=== PATIENT | female | born 1990 | race Two or more races ===

== ENCOUNTER 2018-10-16 14:31 | Inpatient (IN) | payer OTHER ==
--- NOTE | 2018-10-16 16:35 | PDGENHP ---
History and Physical History and Physical: Care: [facility] HPI: Bee Doran is a 28yo with IUP @ 40-3 weeks that presents to L&D with complaints of leaking fluid since 07. States contractions started last night at approx 2200, but worsened after SROM. she denies any VB. She reports +FM. EDC: 10/13/2018 which is based on LMP: 01/06/18 which is known and consistent with Ultrasound at 9 weeks. Her is complicated by:ALBERTO @ 23wks, ?zika exposure, fibroid, abnormal AFP/Quaf- normal NIPT Review of Systems: Constitutional: Denies any fever, chills, or fatigue HEENT: denies any visual changes, difficulty swallowing, hearing loss Cardiovascular: Denies any chest pain, palpitations, leg swelling Respiratory: denies any cough, wheezing, or shortness of breathe GI: Denies any nausea, vomiting, diarrhea, constipation : denies any dysuria, urgency, frequency, vaginal bleeding Musculoskeletal: denies any muscle or bone pain Skin: denies any rashes Neuro: denies any headache, seizures, lightheadedness, dizziness, or loss of consciousness Psychiatric: denies any depression, anxiety, or SI/HI thoughts HISTORY: Previous OB history: G1 Past medical history: uterine fibroid Past surgical history:left finger surgery Social: Denies any alcohol, tobacco, or drug use. Family history: Not relevant Medications: PNV Allergies (list reaction): NKDA LABS: Rh:O+ ABS: Neg Rubella: Immune HbsAg: NR HIV: NR VDRL: NR 1hr: 143-- 3hr NL GC: Neg Chlamydia: Neg Pap: ? GBS: neg BMI: (prepreg) 23 PHYSICAL EXAM: Constitutional: WN, A&Ox3 HEENT: normocephalic atraumatic, supple Skin: Warm, dry, intact Heart: RRR, no murmur Chest: CTA-B Abdomen: Soft, nontender, gravid SVE: deferred Extremities: no edema, negative homans sign Neuro: grossly normal Psych: normal affect assessment: FHT baseline 145 +accels, no decels, moderate variability Contractions: toco q 3-4 Assessment: * 28yo with IUP@ 40-3wks * ACtive labor * GBS Negative * cat 1 FHR * SROM- clear Plan: * admit to L&D * expectant management * pain management PRN * IA per protocol * consider augmentation PRN * reassess 2-4hr/PRN Today's visit was approximately 30 min, of which >50% of visit 20 min, was spent face to face with pt on direct counseling/coordination of care.
[2018-10-16] MEDS ORDERED: AMMONIA AROMATIC 1 EACH AMP IH PRN (16:36)
[2018-10-16] MEDS ORDERED: MISOPROSTOL 200 MCG TAB PO PRN (16:36)
[2018-10-16] MEDS ORDERED: LR 1,000 ML IV PRN (16:36)
[2018-10-16] MEDS ORDERED: EPSOM SALT 454 GM TP PRN (16:36)
[2018-10-16] MEDS ORDERED: OLIVE OIL 118 ML BTL MISC PRN (16:36)
[2018-10-16] MEDS ORDERED: TERBUTALINE SULFATE 1 MG/ML VIAL IV PRN (16:36)
[2018-10-16] MEDS ORDERED: LIDOCAINE 1% 300 MG/30 ML SDV SC PRN (16:36)
[2018-10-16] MEDS ORDERED: IBUPROFEN 600 MG TAB PO PRN (16:36)
[2018-10-16] MEDS ORDERED: OXYTOCIN/RINGERS LACTATE 1,000 ML IV PRN (16:36)
[2018-10-16 17:23] LABS: PLATELET COUNT 239 10^3/uL (150-400)
[2018-10-16] MEDS ORDERED: PHENYLEPHRINE HCL 100 MCG/ML SYR ONE (17:31)
[2018-10-16] MEDS ORDERED: fentaNYL 2MCG/ML/BUP 0.1% RTU 100 ML BAG EP ONE (17:31)
[2018-10-16] MEDS ORDERED: LIDOCAINE 1% 300 MG/30 ML SDV ONE (17:41)
[2018-10-16] MEDS ORDERED: OLIVE OIL 118 ML BTL MISC ONE (17:41)
[2018-10-16] MEDS ORDERED: AMMONIA AROMATIC 1 EACH AMP IH ONE (17:41)
[2018-10-16] MEDS ORDERED: TERBUTALINE SULFATE 1 MG/ML VIAL ONE (17:42)
[2018-10-16] MEDS ORDERED: MISOPROSTOL 200 MCG TAB ONE (17:42)
[2018-10-16] MEDS ORDERED: OXYTOCIN 10 UNIT/ML VIAL ONE (17:42)
[2018-10-16] MEDS ORDERED: ONDANSETRON 4 MG/2 ML VIAL IVP PRN (17:54)
[2018-10-16] MEDS ORDERED: METOCLOPRAMIDE 10 MG/2 ML VIAL IVP PRN (17:54)
[2018-10-16] MEDS ORDERED: PHENYLEPHRINE HCL 100 MCG/ML SYR IVP PRN (17:54)
[2018-10-16] MEDS ORDERED: NALOXONE HCL 0.4 MG/ML INJ IVP PRN (17:54)
--- NOTE | 2018-10-16 17:55 | PREANESOB ---
Obstetric Pre-Anesthesia Info - General Info Proposed Procedure: Labor Epidural : 1 Para: 0 BERTHA: 10/13/18 Gestational Age: 40 week(s) and 3 day(s) - Labor Status Labor Epidural: Proposed Anesthesia Allergies/Adverse Reactions: Allergy/AdvReac Type Severity Reaction Status Date / Time No Known Allergies Allergy Unverified 10/16/18 14:47 Home Medications: Medication Instructions Recorded Dha 1 tab PO DAILY 10/16/18 Visit Medications: Generic Name Dose Route Start Last Admin Trade Name Freq PRN Reason Stop Dose Admin Ammonia (Aromatic Spirit) 1 each 10/16/18 16:36 Ammonia Aromatic IH 10/26/18 16:35 ONCE PRN Fainting Lactated Ringer's 1,000 mls @ 0 mls/hr 10/16/18 16:36 Lr IV 10/17/18 16:35 PRN PRN SEE PROTOCOL CONDITIONS Protocol Per Protocol Oxytocin/Lactated Ringer's 1,000 mls @ 999 mls/hr 10/16/18 16:36 Pitocin 20 Units/Lr (Premix) IV PRN PRN Post bleeding Ibuprofen 600 mg 10/16/18 16:36 Motrin PO ONCE PRN post , pain Lidocaine HCl 300 mg 10/16/18 16:36 Lidocaine Hcl 1% SC 04/14/19 16:35 ONCE PRN episiotomy Magnesium Sulfate 454 gm 10/16/18 16:36 Epsom Salt TP 04/14/19 16:35 Q1H PRN perineal discomfort Misoprostol 800 - 1,000 mcg 10/16/18 16:36 Cytotec PO 04/14/19 16:35 ONCE PRN Vaginal Atony/Bleeding [place] Oil 118 ml 10/16/18 16:36 Sweet Oil MISC 04/14/19 16:35 ONCE PRN perineal massage Terbutaline Sulfate 0.25 mg 10/16/18 16:36 Brethine IV 04/14/19 16:35 ONCE PRN Tachysystole Discontinued Medications Generic Name Dose Route Start Last Admin Trade Name Freq PRN Reason Stop Dose Admin Ammonia (Aromatic Spirit) Confirm 10/16/18 17:41 Ammonia Aromatic Administered 10/16/18 17:42 Dose 1 each IH .STK-MED ONE Fentanyl/Bupivacaine HCl Confirm 10/16/18 17:31 Fentanyl/Bupivacaine/Ns 2 Mcg/Ml 0.1% (Premix Administered 10/16/18 17:32 Dose 100 ml EP .STK-MED ONE Lidocaine HCl Confirm 10/16/18 17:41 Lidocaine Hcl 1% Administered 10/16/18 17:42 Dose 300 mg .ROUTE .STK-MED ONE Misoprostol Confirm 10/16/18 17:42 Cytotec Administered 10/16/18 17:43 Dose 1,000 mcg .ROUTE .STK-MED ONE [place] Oil Confirm 10/16/18 17:41 Sweet Oil Administered 10/16/18 17:42 Dose 118 ml MISC .STK-MED ONE Oxytocin Confirm 10/16/18 17:42 Pitocin Administered 10/16/18 17:43 Dose 40 unit .ROUTE .STK-MED ONE Phenylephrine HCl Confirm 10/16/18 17:31 Neosynephrine Administered 10/16/18 17:32 Dose 1,000 mcg .ROUTE .STK-MED ONE Terbutaline Sulfate Confirm 10/16/18 17:42 Brethine Administered 10/16/18 17:43 Dose 1 mg .ROUTE .STK-MED ONE - Vital Signs Height/Weight (Nursing): Height 154.94 cm Weight 67.132 kg - Focused Exam Neck exam: FROM Mallampati Score: Class 2 Mouth exam: normal dental/mouth exam Pulmonary: clear to auscultation Cardiovascular: regular rate and rhythym Labs: 10/16/18 17:15
[2018-10-16] MEDS ORDERED: LR 500 ML IV SCH (18:00)
[2018-10-16] MEDS ORDERED: fentaNYL 2MCG/ML/BUP 0.1% RTU 100 ML EP SCH (18:00)
[2018-10-16] MEDS ORDERED: SIMETHICONE 80 MG TAB CHEW PO PRN (22:11)
[2018-10-16] MEDS ORDERED: HYDROCORTISONE 0.5% CREAM TP PRN (22:11)
--- NOTE | 2018-10-16 22:11 | OBDEL ---
Info Type: Vaginal Presentation at Delivery: Vertex L&D Analgesia/Anesthesia Type: Epidural GBS+: No Intrapartum Medications: Generic Name Dose Route Start Last Admin Trade Name Freq PRN Reason Stop Dose Admin Lactated Ringer's 1,000 mls @ 0 mls/hr 10/16/18 16:36 10/16/18 20:23 Lr IV 10/17/18 16:35 1,000 mls PRN PRN Administration SEE PROTOCOL CONDITIONS Protocol Per Protocol Discontinued Medications Generic Name Dose Route Start Last Admin Trade Name Freq PRN Reason Stop Dose Admin Oxytocin/Lactated Ringer's 1,000 mls @ 999 mls/hr 10/16/18 16:36 10/16/18 21: 36 Pitocin 20 Units/Lr (Premix) IV 1,000 mls PRN PRN Administration Post bleeding Indications for Delivery: Spontaneous Labor, SROM Vaginal Delivery - Delivery Provider Delivery Physician/CNM: Jacqueline Ramos - Labor and Delivery Onset of Contractions Date: 10/15/18 Onset of Contractions Time: 22:00 Onset of Contractions Type: Spontaneous Rupture of Membranes Date: 10/16/18 Rupture of Membranes Time: 07:45 Rupture of Membranes Type: Spontaneous Amniotic Fluid Color: Clear Dilation Complete Date: 10/16/18 Dilation Complete Time: 20:49 Placenta Delivery Date: 10/16/18 Placenta Delivery Time: 21:34 Total Hours of Labor: 23 Laceration: 2nd Degree Repair: 3-0, Vicryl Vaginal Sponge Count Correct: Yes Vaginal Needle Count Correct: Yes Vaginal Sweep Performed: Yes EBL: 250 Delivery Events: None [place] Data BERTHA: 10/13/18 Gestational Age: 40 week(s) and 3 day(s) Nix Delivery Date: 10/16/18 Delivery Time: 21:27 Sex of : Female Score (1 Min): 9 Score (5 Min): 9 ICD10 Worksheet Patient Problems: Problems Problem Status Onset (spontaneous vaginal delivery) Acute - ICD10 Problem Qualifiers (1) (spontaneous vaginal delivery)
[2018-10-16] MEDS: ACETAMINOPHEN 500 MG TAB PO SCH (22:18)
[2018-10-17] MEDS: ACETAMINOPHEN 500 MG TAB PO SCH ×3 (06:18→16:04)
[2018-10-17] MEDS: IBUPROFEN 600 MG TAB PO PRN ×3 (06:19→21:48)
--- NOTE | 2018-10-17 07:47 | POSTANESTH ---
Post Anesthetic Evaluation Cardiovascular Status: Normal, Stable Respiratory Status: Normal, Stable Level of Consciousness/Mental Status: Can Participate in Eval, Alert and Oriented Pain Control: Adequate, Prn Tx Ordered Nausea/Vomiting Control: Adequate, Prn Tx Ordered Complications Possibly Related to Anesthesia: None Noted (Placenta Delivery Time 10/16/18 @ 21:34 = Epidural End Time)
--- NOTE | 2018-10-17 09:35 | OBPP ---
Progress Note Assessment/Plan: Assessment: 1. First PP day 2. BF fair 3. Plan: 1. support 2. D/C home tomorrow 10/17/18 09:33 Subjective/ Course: 10/17/18 09:34 No c/o. Voiding without difficulty. Bleeding normal. Pain management effective. Objective: 10/16/18 17:15 Patient ABO/Rh O POSITIVE 10/16/18 17:15 Temp Pulse Resp BP Pulse Ox 36.6 C 69 16 90/59 L 96 10/17/18 03:15 10/17/18 03:15 10/17/18 03:15 10/17/18 03:15 10/17/18 03:15 VSS. Uterine Position/Fundal Height: At Umbilicus Uterine Tone: Firm
[2018-10-17] MEDS: DOCUSATE SODIUM 100 MG CAP PO PRN (22:39)
[2018-10-18] MEDS: ACETAMINOPHEN 500 MG TAB PO SCH ×2 (01:11→10:30)
[2018-10-18] MEDS: DOCUSATE SODIUM 100 MG CAP PO PRN (07:46)
[2018-10-18] MEDS: IBUPROFEN 600 MG TAB PO PRN ×2 (07:46→13:48)
[2018-10-18 09:05] VITALS: BP 103/59
--- NOTE | 2018-10-18 11:23 | OBGCSDC ---
General Delivery Information - General Info : 1 Para: 1 Abortions: 0 Type: Vaginal L&D Analgesia/Anesthesia Type: Epidural Admission Date: 10/16/18 Labs: Patient ABO/Rh O POSITIVE 10/16/18 17:15 Hct 42.1 % (38.0-47.0) 10/16/18 17:15 - Hospital Course : 10/17/18 09:34 No c/o. Voiding without difficulty. Bleeding normal. Pain management effective. 10/18/18 11:22 S) Pt doing well, reports min pain and bleeding. she is ambulating and voiding without difficulty. She is . She desires discharge home today. O) VSS, afebrile constitutional: WNWF, A&Ox3 HEENT: normocephalic, atraumatic, supple Heart: RRR, No murmur Chest: CTA-B Abdomen: Soft, nontender Uterus: Firm at U-2 Lochia: Minimal rubra Perineum: Intact, healing well Extremities: Trace edema, and negative Sarah's sign Neuro: Grossly normal A) -year-old P 1 S/P PPD#2 P) Discharge home today Continue Pelvic rest x6wks Discussed danger signs (infection, preeclampsia, depression, heavy bleeding, etc) RTO in 2/4/6 weeks Vaginal - Delivery Provider Delivery Physician/CNM: Jacqueline Ramos - Diagnosis Labor: Spontaneous Rupture of Membranes Type: Spontaneous Amniotic Fluid Color: Clear Laceration: 2nd Degree Repair: 3-0, Vicryl Delivery Events: None - Delivery EBL: 250 Data BERTHA: 10/13/18 Gestational Age: 40 week(s) and 5 day(s) Nix Delivery Date: 10/16/18 Delivery Time: 21:27 Sex of : Female Weight (gm): 0 g Score (1 Min): 9 Score (5 Min): 9 Discharge Information - Discharge Information Prescriptions: Ibuprofen [Motrin (*)] 600 mg PO Q6HRS PRN #40 tab PRN Reason: Pain, Mild Able To Take Po Docusate Sodium [Colace 100 MG (*)] 100 mg PO BID PRN #30 cap PRN Reason: Constipation Condition: Good
== END 2018-10-18 14:15 | disposition home or self-care (01) | DRG 807 ==
LOC: FLD 14:31 → FOB 10-17 00:12
PROVIDERS: ADMIT Advanced Practice Midwife; ATTEND Advanced Practice Midwife
PROC: 0KQM0ZZ Repair Perineum Muscle, Open Approach (ICD-10-PCS; principal; 2018-10-16)
PROC: 10E0XZZ Delivery of Products of Conception, External Approach (ICD-10-PCS; principal; 2018-10-16)
DX: O70.1 Second degree perineal laceration during delivery (principal); Z37.0 Single live birth; Z3A.40 40 weeks gestation of pregnancy
CPT/HCPCS: J2370; J2590; J3105